=== PATIENT | female | born 1995 | race Caucasian/White ===

== ENCOUNTER 2021-02-28 07:53 | Inpatient (IN) ==
[2021-02-28] MEDS ORDERED: Buffered Lidocaine 1% SYRIN 1 ml INTRADERM ONE (09:51)
[2021-02-28] MEDS ORDERED: Lactated Ringers 1000 ml BAG 1,000 ML IV ONE ×2 (09:51→20:57)
[2021-02-28 10:29] LABS: Urine Appearance Cloudy; Urine Bilirubin Negative (Negative); Urine Blood 1+ (Negative); Urine Color Yellow; Urine Glucose Negative (Negative); Urine Ketones Negative (Negative); Urine Nitrite Negative (Negative); Urine Protein Negative (Negative); Urine Specific Gravity 1.013 (1.002-1.030); Urine Urobilinogen Negative (Negative)
[2021-02-28 10:37] LABS: Urine Benzodiazepine Screen None Detected (None Detect); Urine Cannabinoids Screen None Detected (None Detect); Urine Opiates Screen None Detected (None Detect)
[2021-02-28 10:52] LABS: Urine Bacteria Absent (Absent); Urine Red Blood Cell 1+(3-5/hpf) (Absent); Urine Squamous Epithelial Cell Present (Absent); Urine White Blood Cell 3+(>20/hpf) (Absent)
[2021-02-28 12:07] LABS: ABS Lymphocytes 1.3 10^3/ul (1.0-4.8); ABS Monocytes 0.5 10^3/ul (0-0.8); ABS Neutrophils 7.3 10^3/ul (1.5-7.7); Eosinophil % 0.4 %; Hematocrit 43 % (35-47); Hemoglobin 14.4 g/dL (12.0-16.0); Lymphocyte % 14.6 %; Mean Corpuscular HGB Conc 34 g/dL (31-36); Mean Corpuscular Hemoglobin 29 pg (27-31); Mean Corpuscular Volume 86 fL (80-97); Mean Platelet Volume 9.6 fL (7.4-10.4); Nucleated Red Blood Cells % 0.2; Platelet Count 288 10^3/uL (150-450); Red Blood Count 4.98 10^6 /uL (3.70-4.87); Red Cell Distribution Width 14 % (10-15); White Blood Count 9.2 10^3/uL (3.5-10.8)
[2021-02-28 12:25] LABS: Albumin 3.3 g/dL (3.2-5.2); Albumin/Globulin Ratio 0.9 (1-3); EGFR Non-African American 107.4 (>60); Globulin 3.8 g/dL (2-4); Total Bilirubin 0.2 mg/dL (0.2-1.0); Total Protein 7.1 g/dL (6.4-8.9); Uric Acid 5.6 mg/dL (2.3-6.6)
[2021-02-28] MEDS: Lactated Ringers 1000 ml BAG 1,000 ML IV SCH (13:02)
[2021-02-28] MEDS ORDERED: OBEPIDURAL 250 ML EPIDURAL ONE (20:09)
[2021-02-28] MEDS ORDERED: Sodium Citrate/Citric Acid LIQ 15 ML UDC PO PRN (20:57)
[2021-02-28] MEDS ORDERED: Phenylephrine 40 mcg/mL 10mL (400mcg) SYRINGE IV PUSH PRN ×2 (20:57)
[2021-02-28] MEDS ORDERED: Lactated Ringers 1000 ml BAG 500 ML IV PRN (20:57)
[2021-02-28] MEDS ORDERED: EPHEDrine (Pressors) 50 MG/ML VIAL IV PUSH PRN ×2 (20:57)
[2021-02-28] MEDS ORDERED: Lactated Ringers 1000 ml BAG 1,000 ML IV SCH ×2 (21:00)
[2021-02-28] MEDS ORDERED: OBEPIDURAL 250 ML EPIDURAL SCH (21:00)
[2021-02-28] MEDS ORDERED: Oxytocin in LR 20 UNITS/1,000 ML BAG IVPB SCH (22:00)
[2021-03-01] MEDS: Lactated Ringers 1000 ml BAG 1,000 ML IV SCH (04:08)
[2021-03-01 08:28] LABS: Urine Appearance Cloudy; Urine Bacteria Absent (Absent); Urine Bilirubin Negative (Negative); Urine Blood 3+ (Negative); Urine Color Yellow; Urine Glucose Negative (Negative); Urine Ketones Negative (Negative); Urine Nitrite Negative (Negative); Urine Protein 3+(>=500 mg/dL) (Negative); Urine Red Blood Cell 3+(>10/hpf) (Absent); Urine Urobilinogen Negative (Negative); Urine White Blood Cell Trace(0-5/hpf) (Absent)
[2021-03-01] MEDS ORDERED: Witch Hazel PAD JAR TOPICAL PRN (09:04)
[2021-03-01] MEDS: Dibucaine 1% OINT 28.35 GM TUBE PR PRN (09:40)
[2021-03-01] MEDS ORDERED: Oxytocin in LR 20 UNITS/1,000 ML BAG IVPB SCH (10:00)
[2021-03-01] MEDS ORDERED: Lactated Ringers 1000 ml BAG 1,000 ML IV SCH (10:00)
[2021-03-01] MEDS ORDERED: Lidocaine 1% VIAL 10 MG/ML VIAL ONE (10:44)
[2021-03-02 08:30] LABS: ABS Eosinophils 0.2 10^3/ul (0-0.6); ABS Lymphocytes 2.6 10^3/ul (1.0-4.8); ABS Monocytes 0.6 10^3/ul (0-0.8); ABS Neutrophils 9.9 10^3/ul (1.5-7.7); Eosinophil % 1.3 %; Hematocrit 33 % (35-47); Hemoglobin 10.8 g/dL (12.0-16.0); Lymphocyte % 19.4 %; Mean Corpuscular HGB Conc 33 g/dL (31-36); Mean Corpuscular Hemoglobin 29 pg (27-31); Mean Corpuscular Volume 88 fL (80-97); Mean Platelet Volume 9.4 fL (7.4-10.4); Platelet Count 242 10^3/uL (150-450); Red Blood Count 3.77 10^6 /uL (3.70-4.87); Red Cell Distribution Width 15 % (10-15); White Blood Count 13.3 10^3/uL (3.5-10.8)
[2021-03-03 08:24] VITALS: BP 134/74
[2021-03-03] MEDS: Dibucaine 1% OINT 28.35 GM TUBE PR PRN (11:52)
== END 2021-03-03 13:21 | disposition home or self-care (01) | DRG 542 ==
LOC: MCHOBOUT 07:53 → MCHOB 09:40
PROVIDERS: ADMIT Midwife; ATTEND Midwife

== ENCOUNTER 2024-03-18 09:50 | Inpatient (IN) ==
[2024-03-18] MEDS ORDERED: Lidocaine 1% VIAL 10 MG/ML 30 ML VIAL INJ PRN (11:06)
[2024-03-18] MEDS: miSOPROStol 100 mcg TAB VAGINAL ONE (11:38)
[2024-03-18 12:14] LABS: Urine Benzodiazepine Screen None Detected (None Detect); Urine Cannabinoids Screen None Detected (None Detect); Urine Opiates Screen None Detected (None Detect)
[2024-03-18] MEDS: miSOPROStol 100 mcg TAB ONE (17:22)
[2024-03-18] MEDS: Lactated Ringers 1000 ml BAG 1,000 ML IV ONE (22:31)
[2024-03-18 23:07] LABS: ABS Eosinophils 0.1 10^3/uL (0.0-0.5); ABS Lymphocytes 1.6 10^3/uL (1.0-4.8); ABS Monocytes 0.7 10^3/uL (0.0-0.9); ABS Neutrophils 6.2 10^3/uL (1.5-7.6); ABS Nucleated RBC 0.01 10^3/ul; Eosinophil % 0.7 %; Hematocrit 42.8 % (35-45); Hemoglobin 14.6 g/dL (11.5-14.3); Mean Corpuscular Hemoglobin 29.1 pg (27-33); Mean Corpuscular Hgb Conc 34.3 g/dL (31-36); Mean Corpuscular Volume 84.9 fL (80-97); Mean Platelet Volume 9.9 fL (7.5-11.2); Nucleated Red Blood Cells % 0.1 %/100WBC (0.0-0.8); Platelet Count 294 10^3/uL (150-450); Red Blood Count 5.04 10^6/uL (3.63-4.92); White Blood Count 8.7 10^3/uL (3.8-11.8)
[2024-03-18] MEDS: Lactated Ringers 1000 ml BAG 1,000 ML IV SCH (23:18)
[2024-03-19] MEDS: Phenylephrine 40 mcg/mL 10mL (400mcg) SYRINGE IV PUSH PRN (01:32)
[2024-03-19] MEDS: OBEPIDURAL (200 ML) 200 ML EPIDURAL ONE (01:45)
[2024-03-19] MEDS ORDERED: Phenylephrine 40 mcg/mL 10mL (400mcg) SYRINGE IV PUSH PRN (01:55)
[2024-03-19] MEDS ORDERED: Sodium Citrate/Citric Acid LIQ 15 ML UDC PO PRN (01:55)
[2024-03-19 02:34] LABS: Urine Appearance Clear; Urine Bilirubin Negative (Negative); Urine Blood Negative (Negative); Urine Color Light-Yellow; Urine Glucose Negative (Negative); Urine Ketones 2+ (Negative); Urine Nitrite Negative (Negative); Urine Protein Negative (Negative); Urine Specific Gravity 1.018 (1.002-1.030); Urine Urobilinogen Negative (Negative); Urine pH 5.5 (5.0-8.0)
[2024-03-19] MEDS ORDERED: Glycerin ADULT 2.4 gm SUPP PR PRN (07:13)
[2024-03-19] MEDS: Oxytocin in LR 20,000 MILLI.UNIT/1,000 ML BAG IV SCH (07:20)
[2024-03-19] MEDS: Lidocaine 2% JELLY 6 ML Topical TOPICAL ONE (12:01)
[2024-03-19] MEDS: Witch Hazel PAD JAR TOPICAL PRN (13:53)
[2024-03-19] MEDS: Dibucaine 1% OINT 28.35 GM TUBE PR PRN (13:53)
[2024-03-20 06:49] LABS: ABS Lymphocytes 1.4 10^3/uL (1.0-4.8); ABS Monocytes 0.5 10^3/uL (0.0-0.9); ABS Neutrophils 6.5 10^3/uL (1.5-7.6); ABS Nucleated RBC 0.01 10^3/ul; Eosinophil % 0.6 %; Hematocrit 34.5 % (35-45); Hemoglobin 11.4 g/dL (11.5-14.3); Lymphocyte % 16.9 %; Mean Corpuscular Hemoglobin 28.3 pg (27-33); Mean Corpuscular Hgb Conc 33.2 g/dL (31-36); Mean Corpuscular Volume 85.3 fL (80-97); Mean Platelet Volume 8.7 fL (7.5-11.2); Nucleated Red Blood Cells % 0.1 %/100WBC (0.0-0.8); Platelet Count 228 10^3/uL (150-450); Red Blood Count 4.04 10^6/uL (3.63-4.92); Red Cell Distribution Width 14.3 % (12-17); White Blood Count 8.5 10^3/uL (3.8-11.8)
[2024-03-20] MEDS: Butalb/Acetamin/Caff TAB 325-50-40MG PO PRN (18:10)
[2024-03-20] MEDS: Bupivacaine 0.25% SDV PF 10 ML VIAL INJ ONE (19:00)
[2024-03-20] MEDS: Lactated Ringers 1000 ml BAG 1,000 ML IV ONE (19:00)
[2024-03-20] MEDS: Lactated Ringers 1000 ml BAG 1,000 ML IV SCH (19:01)
[2024-03-20] MEDS: Oxytocin in LR 20,000 MILLI.UNIT/1,000 ML BAG IV ONE (19:01)
[2024-03-20] MEDS: OBEPIDURAL (200 ML) 200 ML EPIDURAL SCH (19:01)
[2024-03-20] MEDS: Lidocaine 1.5% EPI 1:200,000 30 ML SDV ONE (19:02)
[2024-03-20] MEDS: Buffered Lidocaine 1% SYRIN 1 ml INTRADERM ONE (19:02)
[2024-03-21 08:36] VITALS: BP 113/72
== END 2024-03-21 13:10 | disposition home or self-care (01) | DRG 560 ==
LOC: MCHOBOUT 09:50 → MCHOB 10:42
PROVIDERS: ADMIT Midwife; ATTEND Midwife